=== PATIENT | male | born 1950 | race Caucasian/White ===

== ENCOUNTER 2023-05-17 10:13 | Outpatient (CLI) | payer OTHER ==
[~2023-05-17 10:13] MED LIST: AMLODIPINE PO; ATROVASTATIN PO; AZITHROMYCIN500 MG PO; CONEX TABLET1 EACH PO; GLUMETZA1000 MG PO; LANTUS SQ; LOSARTAN-HCTZ1 EACH PO; OMEGA 3 FISH OI1 CAP PO; ZYNCOF 20-400120 ML PO
== END 2023-05-17 10:20 | disposition home or self-care (01) ==
LOC: RAD 10:13
PROVIDERS: ATTEND Urology
DX: N20.1 Calculus of ureter (principal)

== ENCOUNTER 2023-11-04 10:30 | Inpatient (IN) | payer OTHER ==
[~2023-11-04] VITALS: Ht 172.7 cm; Wt 85.7 kg
[2023-11-04 15:59] LABS: INR 0.98; PARTIAL THROMBOPLASTIN TIME 28.5 SECONDS (22.0-34.0); PROTHROMBIN TIME 10.3 SECONDS (9.0-11.5)
[2023-11-10 06:51] LABS: HEMATOCRIT 39.7 % (39.0-48.0); HEMOGLOBIN 13.6 g/dL (13-16.00); MEAN CELL VOLUME 86.4 fL (80.0-100.00); MEAN CORPUSCULAR HEMOGLOBIN 29.7 pg (27.00-32.0); MEAN CORPUSCULAR HGB CONC 34.3 g/dl (32.0-36.0); PLATELET COUNT 222 K/uL (150-450); RED BLOOD COUNT 4.59 M/uL (4.00-6.00); RED CELL DISTRIBUTION WIDTH 13.2 % (11.5-14.5)
[2023-11-10 07:22] LABS: CALCIUM 8.4 mg/dL (8.5-10.1); CREATININE SERUM 0.86 mg/dL (0.70-1.30); GFR 87.17; POTASSIUM 3.83 mEq/L (3.5-5.1)
== END 2023-11-11 11:00 | disposition home or self-care (01) | DRG 714 ==
LOC: SURG 11-09 05:49 → O/R 11-09 05:49 → SURG 11-09 10:15
PROVIDERS: ADMIT Urology; ATTEND Urology
PROC: 0VT08ZZ Resection of Prostate, Via Natural or Artificial Opening Endoscopic (ICD-10-PCS; principal; 2023-11-09 10:15)
DX: N40.1 Benign prostatic hyperplasia with lower urinary tract symptoms (principal)